=== PATIENT | male | born 1985 | race African-American/Black ===

== ENCOUNTER 2022-04-18 22:04 | Emergency (ER) | payer SELFPAY ==
[2022-04-18] MEDS ORDERED: Ketorolac Tromethamine 30 MG/ML VIAL ONE (22:33)
== END 2022-04-18 23:44 | disposition home or self-care (01) ==
LOC: CSHERS 22:04
DX: G56.01 Carpal tunnel syndrome, right upper limb (principal); I10 Essential (primary) hypertension; F17.210 Nicotine dependence, cigarettes, uncomplicated
CPT/HCPCS: 96372; 99283; J1885